=== PATIENT | male | born 1955 | race Caucasian/White ===

== ENCOUNTER 2016-12-29 10:17 | Emergency (ER) | payer OTHER ==
[~2016-12-29] VITALS: Ht 172.7 cm; Wt 70.3 kg
[2016-12-29] MEDS ORDERED: MULTI-DAY VITA1 EACH PO (10:37)
[2016-12-29] MEDS ORDERED: ASPIR 8181 MG PO (10:37)
[2016-12-29] MEDS ORDERED: AUGMENTIN 875-1 EACH PO (11:09)
== END 2016-12-29 11:24 | disposition home or self-care (01) ==
LOC: ED 10:17
DX: K04.7 Periapical abscess without sinus (principal); F17.200 Nicotine dependence, unspecified, uncomplicated; Z91.09 Other allergy status, other than to drugs and biological substances; Z88.8 Allergy status to other drugs, medicaments and biological substances; Z79.82 Long term (current) use of aspirin; Z79.899 Other long term (current) drug therapy
CPT/HCPCS: 99283